=== PATIENT | female | born 1945 | race Hispanic/Latino ===

== ENCOUNTER 2022-01-28 08:47 | Observation (INO) | payer OTHER, MEDICARE ==
[2022-01-24 11:19] LABS: BASOPHILS % (AUTO) 0.4 % (0.0-5.0); EOSINOPHILS % (AUTO) 1.2 % (0.0-8.0); HEMATOCRIT 49.2 % (36-48); MEAN CORPUSCULAR HEMOGLOBIN 26.1 pg (27.0-33.0); MEAN CORPUSCULAR HGB CONC 31.5 g/dL (32.0-36.0); MONOCYTES % (AUTO) 3.6 % (3.0-13.0); NEUTROPHILS % (AUTO) 62.5 % (40.0-77.0); PLATELET COUNT (AUTO) 259 K/uL (130-400); RED BLOOD CELL COUNT(AUTO) 5.93 MIL/uL (4.00-5.50); RED CELL DISTRIBUTION WIDTH 15.6 % (11.0-15.5); WHITE BLOOD COUNT (AUTO) 9.8 K/uL (4.8-10.8)
[2022-01-24 11:29] LABS: CREATININE 0.7 mg/dL (0.5-1.5); POTASSIUM 3.4 mmol/L (3.5-5.1)
[2022-01-24 11:34] LABS: INR 0.98 (0.85-1.15); PROTHROMBIN TIME 10.7 SEC (9.6-11.6)
[2022-01-24 11:35] LABS: PARTIAL THROMBOPLASTIN TIME 40.7 SEC (26.3-35.5)
[2022-01-27 12:51] VITALS: BP 174/57
[2022-01-28] VITALS (22 sets, daily range): BP systolic 115–149; BP diastolic 50–68
[~2022-01-28] VITALS: Ht 160 cm; Wt 107.2 kg
[~2022-01-28 08:47] MED LIST: AMLO-258 PO; ATOR10 PO; CEFAZOLIN SODIUM 1 GM VIAL IVP ONE; CHOL2000 PO; HYDR25TA PO; INSU100I13 SQ; LACTATED RINGERS 1000ML 1,000 ML IV SCH; LOSA100T58 PO; MELO-108 PO; METO-391 PO; SPIR25TA6 PO
[2022-01-28] MEDS ORDERED: 0.9%NACL 1000ML 1,000 ML IV ONE (10:11)
[2022-01-28] MEDS ORDERED: CEFAZOLIN SODIUM 1 GM VIAL ONE (10:11)
[2022-01-28] MEDS ORDERED: CLINDAMYCIN IVPB 600MG/50ML 50 ML IV ONE (10:38)
[2022-01-28] MEDS ORDERED: PHENYLEPHRINE HCL 10 MG/ML 1ML VIAL IV ONE (10:48)
[2022-01-28] MEDS ORDERED: LIDOCAINE PF 100MG/5ML (2%) SYRINGE 5ML ONE (10:48)
[2022-01-28] MEDS ORDERED: PROPOFOL 10 MG/ML 20ML VIAL IV ONE ×2 (10:49→13:59)
[2022-01-28] MEDS ORDERED: ROPIVACAINE 0.5% 5MG/ML 30ML IJ ONE (10:51)
[2022-01-28] MEDS ORDERED: PROPOFOL 1000 MG/100 ML 100 ML IV ONE (11:00)
[2022-01-28] MEDS ORDERED: FAMOTIDINE 20MG VIAL IV ONE (11:51)
[2022-01-28] MEDS ORDERED: POTASSIUM CHLORIDE 10% ELIXIR 20 MEQ/15 ML UDCUP PO PRN (12:30)
[2022-01-28] MEDS ORDERED: NON-FORMULARY MEDICATION 1 EACH (Meloxicam 15 MG) PO PRN (12:30)
[2022-01-28] MEDS: ACETAMINOPHEN 500 MG TABLET PO SCH ×2 (12:30→19:45)
[2022-01-28] MEDS ORDERED: HYDROCODONE/ACETAMINOPHEN 10/325 MG TAB PO PRN (12:30)
[2022-01-28] MEDS: 0.9%NACL 1000ML 1,000 ML IV SCH ×2 (12:30→21:43)
[2022-01-28] MEDS ORDERED: LIDOCAINE HCL-MPF 1% 2ML VIAL IV PRN (12:30)
[2022-01-28] MEDS ORDERED: HYDROCODONE/ACETAMINOPHEN 5/325 MG TAB PO PRN (12:30)
[2022-01-28] MEDS ORDERED: POTASSIUM CHLORIDE 20MEQ/100ML 100 ML IV PRN (12:30)
[2022-01-28] MEDS ORDERED: MORPHINE 4 MG SYG IVP PRN (12:30)
[2022-01-28] MEDS ORDERED: KCL 20 MEQ ERTAB PO PRN (12:30)
[2022-01-28] MEDS ORDERED: FENTANYL CITRATE PF 50 MCG/1 ML 5ML AMP IV ONE (12:45)
[2022-01-28] MEDS ORDERED: ONDANSETRON 4MG INJ ONE (12:46)
[2022-01-28] MEDS ORDERED: TRANEXAMIC ACID 1000MG/10ML ONE (13:08)
[2022-01-28] MEDS ORDERED: NEOSTIGMINE 5MG/5ML SYR IV ONE (14:23)
[2022-01-28] MEDS ORDERED: MEPERIDINE-PF 25 MG/ML SYG ONE ×2 (15:19→15:32)
[2022-01-28] MEDS: ONDANSETRON 4MG INJ IVP PRN ×2 (15:27→18:00)
[2022-01-28] MEDS ORDERED: KETOROLAC 15MG/ML VIAL (15MG/ML) ONE (15:32)
[2022-01-28] MEDS: INSULIN HUMULIN R 100 UNIT/ML 3ML SQ SCH ×2 (16:30→19:44)
[2022-01-28] MEDS ORDERED: CEFAZOLIN SODIUM 1 GM VIAL IVP SCH (17:30)
[2022-01-28] MEDS: TRAMADOL HCL 50 MG TABLET PO SCH ×2 (18:04→23:37)
[2022-01-28] MEDS: AMLODIPINE 5 MG TAB PO SCH (19:45)
[2022-01-28] MEDS: ASPIRIN 81 MG EC TAB PO SCH (19:45)
[2022-01-28] MEDS: FAMOTIDINE 20MG TAB PO SCH (19:45)
[2022-01-28] MEDS: INSULIN LISPRO SQ SCH (19:50)
[2022-01-28] MEDS: INSULIN NPL SQ SCH (19:50)
[2022-01-28] MEDS ORDERED: CLINDAMYCIN IVPB 600MG/50ML 50 ML IV SCH (20:00)
[2022-01-28] MEDS ORDERED: NON-FORMULARY MEDICATION 1 EACH (Amlodipine Besylate 10 MG) PO SCH (21:00)
[2022-01-29] VITALS: BP 139/66
[2022-01-29 04:00] VITALS: BP 133/62
[2022-01-29] MEDS: ACETAMINOPHEN 500 MG TABLET PO SCH ×3 (04:07→19:42)
[2022-01-29 04:42] LABS: HEMATOCRIT 39.7 % (36-48); MEAN CORPUSCULAR HEMOGLOBIN 26.3 pg (27.0-33.0); MEAN CORPUSCULAR HGB CONC 32.5 g/dL (32.0-36.0); RED BLOOD CELL COUNT(AUTO) 4.9 MIL/uL (4.00-5.50); RED CELL DISTRIBUTION WIDTH 15.1 % (11.0-15.5); WHITE BLOOD COUNT (AUTO) 14.7 K/uL (4.8-10.8)
[2022-01-29 04:55] LABS: CREATININE 1.3 mg/dL (0.5-1.5); POTASSIUM 5.4 mmol/L (3.5-5.1)
[2022-01-29] MEDS: TRAMADOL HCL 50 MG TABLET PO SCH (05:28)
[2022-01-29] MEDS: INSULIN HUMULIN R 100 UNIT/ML 3ML SQ SCH ×4 (06:01→19:49)
[2022-01-29] MEDS: FAMOTIDINE 20MG TAB PO SCH ×2 (07:44→19:41)
[2022-01-29] MEDS: ASPIRIN 81 MG EC TAB PO SCH ×2 (07:44→19:41)
[2022-01-29] MEDS: HYDROCHLOROTHIAZIDE 25 MG TABLET PO SCH (07:45)
[2022-01-29] MEDS: POLYETHYLENE GLYCOL 3350 17 GM POWD.PACK PO SCH (07:45)
[2022-01-29] MEDS: LOSARTAN 100 MG TABLET PO SCH (07:45)
[2022-01-29] MEDS: SPIRONOLACTONE 25 MG TAB PO SCH (07:45)
[2022-01-29] MEDS: METOPROLOL SUCCINATE 50 MG TAB.SR.24H PO SCH (07:45)
[2022-01-29 08:00] VITALS: BP 133/62
[2022-01-29] MEDS: 0.9%NACL 1000ML 1,000 ML IV SCH (08:30)
[2022-01-29] MEDS: INSULIN LISPRO SQ SCH ×3 (09:00→19:46)
[2022-01-29] MEDS: INSULIN NPL SQ SCH ×3 (09:00→19:46)
[2022-01-29 12:00] VITALS: BP 130/73
[2022-01-29 16:00] VITALS: BP 122/52
[2022-01-29 19:00] VITALS: BP 144/55
[2022-01-29] MEDS: AMLODIPINE 5 MG TAB PO SCH (19:41)
[2022-01-30] VITALS: BP 143/53
[2022-01-30 04:00] VITALS: BP 150/54
[2022-01-30] MEDS: ACETAMINOPHEN 500 MG TABLET PO SCH ×2 (04:23→11:45)
[2022-01-30] MEDS: INSULIN HUMULIN R 100 UNIT/ML 3ML SQ SCH ×2 (05:21→11:43)
[2022-01-30 07:30] VITALS: BP 132/60
[2022-01-30] MEDS: SPIRONOLACTONE 25 MG TAB PO SCH (08:49)
[2022-01-30] MEDS: HYDROCHLOROTHIAZIDE 25 MG TABLET PO SCH (08:49)
[2022-01-30] MEDS: FAMOTIDINE 20MG TAB PO SCH (08:49)
[2022-01-30] MEDS: ASPIRIN 81 MG EC TAB PO SCH (08:50)
[2022-01-30] MEDS: POLYETHYLENE GLYCOL 3350 17 GM POWD.PACK PO SCH (08:50)
[2022-01-30] MEDS: METOPROLOL SUCCINATE 50 MG TAB.SR.24H PO SCH (08:50)
[2022-01-30] MEDS: LOSARTAN 100 MG TABLET PO SCH (08:50)
[2022-01-30] MEDS: INSULIN LISPRO SQ SCH (08:56)
[2022-01-30] MEDS: INSULIN NPL SQ SCH (08:56)
[2022-01-30 11:00] VITALS: BP 134/66
[2022-01-31] MEDS ORDERED: BISACODYL 10 MG SUPP.RECT RC PRN (12:30)
== END 2022-01-30 14:50 | disposition home or self-care (01) ==
LOC: DAH 08:47 → DAHIP 08:48 → DAH 08:48 → 4CH 16:37
PROVIDERS: ADMIT Orthopaedic Surgery; ATTEND Orthopaedic Surgery
DX: M17.11 Unilateral primary osteoarthritis, right knee (principal); Z20.822 Contact with and (suspected) exposure to COVID-19; E66.9 Obesity, unspecified; I10 Essential (primary) hypertension; E11.9 Type 2 diabetes mellitus without complications; E78.00 Pure hypercholesterolemia, unspecified; Z68.41 Body mass index [BMI] 40.0-44.9, adult; Z79.899 Other long term (current) drug therapy; Z98.890 Other specified postprocedural states
CPT/HCPCS: 27447; 36415 ×2; 64445; 64447; 76942; 80048 ×2; 82948 ×8; 85025; 85027; 85610; 85730; 87635; 87641; 93005; 96365; 96375; 97039 ×4; 97116 ×4; 97161; 97530 ×4; A4215; A4221; A4222; A4223; A4344; A4649 ×2; A4663; A6260; C1776; C9803; G0168; G0378 ×49; J1815 ×4; J1885; J2001; J2175 ×2; J2270; J2370; J2405 ×2; J2704 ×3; J2710; J2795; J3010; J3490 ×4; J7030 ×2; J7120; J0690